=== PATIENT | male | born 1975 | race Caucasian/White ===

== ENCOUNTER 2019-03-18 19:28 | Emergency (ER) | payer OTHER ==
--- NOTE | 2019-03-18 19:35 | PDOC ---
History of Present Illness - General Chief Complaint: Seizure Stated Complaint: SEIZURE Time Seen by Provider: 03/18/19 19:35 - History of Present Illness Initial Comments: 43 year old male with PMH of seizure disorder (recently diagnosed in 11/2018 and transitioned from Keppra to Lamotrigine 3 weeks prior) presenting with a brief seizure (30-45 seconds) after which he was postictal for 5-10 minutes and returned to his mental baseline by presentation to the ED. Denies any fever, chills, nausea, vomiting, diarrhea, or any other symptoms. 03/18/19 20:33 Past History - Past Medical History Allergies/Adverse Reactions: Allergies Allergy/AdvReac Type Severity Reaction Status Date / Time Penicillins Allergy Severe Hives Verified 03/01/19 14:14 Home Medications: Ambulatory Orders Emtricitabine/Tenofovir [Truvada -] 1 tab PO DAILY #30 tablet 03/01/19 Clonazepam [Klonopin] 1 mg PO BID PRN MDD 2mg 03/18/19 Dextroamphetamine/Amphetamine [Adderall Xr 20 mg Capsule] 20 mg PO DAILY Lamotrigine [Lamictal] 150 mg PO BID 03/18/19 Anemia: No Asthma: No Cancer: No Cardiac Disorders: No CVA: No COPD: No CHF: No Dementia: No Diabetes: No GI Disorders: No Disorders: No HTN: No Hypercholesterolemia: No Liver Disease: No Seizures: No (possible seizure-like episode eval'd by neuro = vasovagal ) Thyroid Disease: No - Suicide/Smoking/Psychosocial Hx Smoking History: Never smoked Hx Alcohol Use: No Drug/Substance Use Hx: No Review of Systems - Review of Systems Constitutional: No: Chills, Diaphoresis, Fever HEENTM: No: Blurred Vision, Tearing Respiratory: No: Cough, Shortness of Breath Cardiac (ROS): No: Edema, Irregular Heart Rate ABD/GI: No: Diarrhea, Nausea, Vomiting : No: Dysuria, Discharge Integumentary: No: Bruising, Erythema Neurological: No: Headache, Numbness, Paresthesia Psychiatric: No: Anxiety, Depression Hematologic/Lymphatic: No: Anemia, Blood Clots, Easy Bleeding *Physical Exam - Physical Exam General Appearance: Yes: Nourished, Appropriately Dressed. No: Apparent Distress HEENT: positive: EOMI, JANELL, Normal ENT Inspection, Normal Voice Neck: positive: Trachea midline, Normal Thyroid, Supple. negative: Tender, Rigid Respiratory/Chest: positive: Lungs Clear, Normal Breath Sounds. negative: Chest Tender, Respiratory Distress, Accessory Muscle Use Cardiovascular: positive: Regular Rhythm, Regular Rate Gastrointestinal/Abdominal: positive: Normal Bowel Sounds, Flat, Soft. negative : Tender Lymphatic: negative: Adenopathy, Tenderness Musculoskeletal: positive: Normal Inspection. negative: Decreased Range of Motion Extremity: positive: Normal Capillary Refill, Normal Inspection, Normal Range of Motion. negative: Tender Integumentary: positive: Normal Color, Dry, Warm Neurologic: positive: Fully Oriented, Alert, Normal Mood/Affect, Normal Response , Motor Strength 03/27 ED Treatment Course - LABORATORY CBC & Chemistry Diagram: 03/18/19 20:00 03/18/19 20:00 Medical Decision Making - Medical Decision Making 43 year old male with PMH of seizure, on lamotrigine, presenting after a brief witnessed seizure in his [place] which did not have any complications. He has been asymptomatic in our ED for the past three hours and feels well enough to go home. This was likely due to work related stress and poor diet. He was given 200 mg lamotrigine per instructions from the neurologist covering his physician' s service. They will also schedule an appointment with him on Thursday. He is OK with DC and will follow up with his neuro and understands return precautions. Of note his creatinine was 1.4. 03/18/19 20:49 *DC/Admit/Observation/Transfer Diagnosis at time of Disposition: Seizure - Discharge Dispostion Disposition: HOME Condition at time of disposition: Improved Decision to Admit order: No - Referrals Referrals: Kaushik Russell [Primary Care Provider] - - Patient Instructions Printed Discharge Instructions: DI for Seizure Disorder -- Adult Additional Instructions: Please use lamotrigine 150 in the morning and 200 at night. We refilled your prescription to include 200 dose pills. Please follow up with your neurologist on Thursday. Of note, your creatinine (kidney function level) was slightly elevated which could be from your dehydration. Please notify your primary care physician and neurologist of this and they will follow it as appropriately indicated. Please stay well fed, hydrated, and get adequate rest. Please return to the ED if you have new or worsening symptoms. - Post Discharge Activity
[2019-03-18 19:42] VITALS: BMI 31.2
[2019-03-18] MEDS ORDERED: SODIUM CHLORIDE 0.9% 500 ML INFUS.BAG IV ONE (19:49)
[2019-03-18 20:15] LABS: BASO % 0.4 % (0-2.0); EOS % 1.1 % (0-4.5); HEMOGLOBIN 15.6 GM/dL (11.7-16.9); LYMPH % 12.7 % (8-40); MCH 31.7 pg (25.7-33.7); MCHC 34.6 g/dl (32.0-35.9); MEAN CELL VOLUME 91.5 fl (80-96); MEAN PLT VOLUME 7.8 fl (7.5-11.1); MONO % 6.9 % (3.8-10.2); NEUT % 78.9 % (42.8-82.8); PLATELET COUNT 192 K/MM3 (134-434); RBC 4.92 M/mm3 (4.00-5.60); RDW 13.7 % (11.9-15.9); WHITE BLOOD COUNT 9.4 K/mm3 (4.0-10.0)
[2019-03-18 20:37] LABS: INR 1.08 (0.83-1.09); PROTHROMBIN TIME (PATIENT) 12.7 SEC (9.7-13.0)
--- NOTE | 2019-03-18 20:42 | PDOC ---
Documentation entered by Eilzabeth Gómez SCRIBE, acting as scribe for Landon Dominguez MD. Landon Dominguez MD: This documentation has been prepared by the Dalia frank Nirvannie, SCRIBE, under my direction and personally reviewed by me in its entirety. I confirm that the documentation accurately reflects all work, treatment, procedures, and medical decision making performed by me. Attending Attestation - Resident Resident Name: Kelin Carmenrimaeric - ED Attending Attestation I have performed the following: I have examined & evaluated the patient, The case was reviewed & discussed with the resident, I agree w/resident's findings & plan - HPI HPI: 03/18/19 20:44 The patient is a 43 year old male, with a significant past medical history of seizure, who presents to the emergency department s/p witnessed seizure while at home lasting 30-40 seconds after increased stressed and decreased PO intake secondary to being busy. Patient was recently changed from Keppra to Lamotrigine. He denies head or neck trauma. Allergies: Penicillins. Primary Care Physician: Dr. Russell - Physicial Exam PE: 03/18/19 20:40 Patient is awake and alert, well-nourished, in no distress normocephalic and atraumatic PERRLA, EOMI CTA RRR Cranial nerves II through XII grossly intact; motor is 5 of 5; ao 3 - Medical Decision Making 03/18/19 20:41 Patient is a 43-year-old male with history of seizure disorder, being transitioned from Keppra to lamotrigine who had a witnessed generalized tonic- clonic seizure. In the ER, patient is awake and alert, without focal neurological deficits, hemodynamically stable. We'll obtain CBC/CMP/symmetric in level. Will discuss with neurology. Likely discharge.
[2019-03-18 22:08] LABS: ALBUMIN 3.9 g/dl (3.4-5.0); ALK PHOS 68 U/L (45-117); ANION GAP 9 MMOL/L (8-16); BILIRUBIN,TOTAL 0.3 mg/dL (0.2-1); BLOOD UREA NITROGEN 14 mg/dL (7-18); CALCIUM 9.5 mg/dL (8.5-10.1); CHLORIDE 108 mmol/L (98-107); CO2 24 mmol/L (21-32); CREATININE 1.4 mg/dL (0.55-1.3); GLUCOSE,RANDOM 142 mg/dL (74-106); SGPT/ALT 38 U/L (13-61); SODIUM 141 mmol/L (136-145); TOT PROT 6.9 g/dl (6.4-8.2)
[2019-03-18 22:09] LABS: POTASSIUM 3.6 mmol/L (3.5-5.1); SGOT/AST 26 U/L (15-37)
[2019-03-18] MEDS ORDERED: lamoTRIgine 25 MG TABLET ONE (22:54)
[2019-03-18 23:01] VITALS: BP 125/64; PULSE 86; TEMP 97.9
== END 2019-03-18 23:17 | disposition home or self-care (01) ==
LOC: JER 19:28
PROC: 3E0337Z Introduction of Electrolytic and Water Balance Substance into Peripheral Vein, Percutaneous Approach (ICD-10-PCS; principal; 2019-03-18)
DX: G40.909 Epilepsy, unspecified, not intractable, without status epilepticus (principal)
CPT/HCPCS: 36415; 80053; 80175; 83735; 85025; 85610; 99282-25